=== PATIENT | female | born 1945 | race Caucasian/White ===

== ENCOUNTER 2021-12-02 01:35 | Emergency (ER) | payer MEDICARE ==
[~2021-12-02] VITALS: Ht 162.6 cm; Wt 104.3 kg
[2021-12-02 06:00] VITALS: BP 140/80
== END 2021-12-02 08:09 | disposition home or self-care (01) ==
LOC: ER 01:35 → EDBD 01:35 → ER 08:04
DX: M25.512 Pain in left shoulder (principal); Z86.73 Personal history of transient ischemic attack (TIA), and cerebral infarction without residual deficits; W18.09XA Striking against other object with subsequent fall, initial encounter; Y93.89 Activity, other specified; Y92.89 Other specified places as the place of occurrence of the external cause; Y99.8 Other external cause status
CPT/HCPCS: 70450; 73000; 73030